=== PATIENT | male | born 1950 | race African-American/Black ===

== ENCOUNTER 2023-08-11 12:47 | Emergency (ER) | payer OTHER ==
[~2023-08-11] VITALS: Ht 177.8 cm; Wt 67.0 kg
[2023-08-11 12:53] VITALS: BP 119/84; PULSE 98; RESP 16; TEMP 98.1; O2SAT 100
[2023-08-11] MEDS: ACETAMINOPHEN 650MG/20.3ML UDC PO ONE (13:30)
== END 2023-08-11 15:20 | disposition home or self-care (01) ==
LOC: ER 12:47
DX: T18.108A Unspecified foreign body in esophagus causing other injury, initial encounter (principal); Z85.9 Personal history of malignant neoplasm, unspecified; X58.XXXA Exposure to other specified factors, initial encounter; Y93.89 Activity, other specified; Y92.89 Other specified places as the place of occurrence of the external cause; Y99.8 Other external cause status
CPT/HCPCS: 99283